=== PATIENT | female | born 1980 | race Caucasian/White ===

== ENCOUNTER 2017-12-12 07:38 | Day surgery (SDC) | payer BC ==
[2017-12-05 12:25] VITALS: BMI 26.6
[~2017-12-12 07:38] MED LIST: DEXAMETHASONE SOD PHOSPHATE 10 MG/ML 1 ML VIAL IV ONE; HYDROmorphone 0.5 MG/0.5 ML SYRINGE IVP PRN; LACTATED RINGERS 1,000 ML IV SCH; MIDAZOLAM 2 MG/2 ML VIAL IV PRN; ONDANSETRON 4 MG/2 ML VIAL IVP ONE; Pre Op ABX Message 1 EACH MISC MISCELLANE ONE
[2017-12-12 08:47] VITALS: RESP 16; TEMP 97.6
[2017-12-12] MEDS ORDERED: SCOPOLAMINE 1.5MG/72HR PATCH TRANSDERM ONE (08:57)
[2017-12-12] MEDS ORDERED: LIDOCAINE 1% INJ 10MG/ML (20 ML MDV) ONE (09:22)
[2017-12-12] MEDS ORDERED: PROPOFOL 10 MG/ML 20 ML VIAL IV ONE (09:22)
[2017-12-12] MEDS ORDERED: MIDAZOLAM 2 MG/2 ML VIAL ONE (09:22)
[2017-12-12] MEDS ORDERED: ACETAMINOPHEN IV (For NPO) 1,000 MG/100 ML VIAL ONE (09:22)
[2017-12-12] MEDS ORDERED: fentaNYL (PF) 50 MCG/ML 2 ML AMP ONE (09:22)
[2017-12-12] MEDS ORDERED: SILVER NITRATE APPLICATOR 1 EACH STICK..EA. TOPICAL ONE (09:24)
--- NOTE | 2017-12-12 09:47 | P.OP ---
Date of Procedure: 12/12/17 Preoperative Diagnosis: Menorrhagia, anemia Postoperative Diagnosis: Same Procedure(s) Performed: Hysteroscopy, dilation and curettage, endometrial ablation, NovaSure Anesthesia: MAC Surgeon: Tiny Lantigua Estimated Blood Loss (ml): 5 IV fluids (ml): 500 Urine output (ml): 50 Pathology: other (Endometrial curetting) Condition: stable Disposition: PACU Indications for Procedure: Heavy menstrual bleeding, anemia Operative Findings: Proliferative endometrium Description of Procedure: Patient is seen in the preoperative area and informed consent is obtained. All questions were answered. Patient was taken to the operating suite where general anesthesia was obtained without difficulty by the anesthesia department she was then prepped and draped in the normal sterile fashion in the dorsal lithotomy position regular catheter was then used to drain the bladder of clear yellow urine. Weighted speculum was placed in the posterior vaginal vault the anterior lip of the cervix was visualized and grasped with a single-tooth tenaculum. Cervical canal was then dilated to 18-Japanese. At this point a hysteroscope was placed through the cervix and toward the endometrial cavity a proliferative endometrium was noted. Pictures were taken and the hysteroscope was removed. Sharp curettage was then performed and the specimen was sent to pathology for analysis. At this point the NovaSure device was opened and set to the uterine measurements of a length of 5 with a 4 power of 110 after cavity assessment was passed the cycle was allowed to come bleed for 95 seconds. Afterwards the NovaSure was removed without difficulty, the anterior lip of the cervix was hemostatic after removal of the single-tooth tenaculum. Next Patient tolerated procedure well,ALL COUNTS were correct 2 patient was taken the recovery room awake in stable condition.
[2017-12-12 11:08] VITALS: BP 115/79; PULSE 75
== END 2017-12-12 11:46 | disposition home or self-care (01) ==
LOC: OR 07:38
PROVIDERS: ATTEND Obstetrics & Gynecology Obstetrics
DX: N92.0 Excessive and frequent menstruation with regular cycle (principal); D64.9 Anemia, unspecified; N94.6 Dysmenorrhea, unspecified; J45.909 Unspecified asthma, uncomplicated; Z79.899 Other long term (current) drug therapy; Z88.5 Allergy status to narcotic agent; Z88.2 Allergy status to sulfonamides; Z87.891 Personal history of nicotine dependence
CPT/HCPCS: 81025; 88305; 58563; J2250; J1100; J2405; J2001; J3010; J0131; J2704